=== PATIENT | female | born 1985 ===

== ENCOUNTER 2017-03-06 13:44 | Inpatient (IN) | payer SELFPAY ==
[2017-03-06] MEDS ORDERED: Lactated Ringer's 1,000 ML IV SCH (16:45)
--- NOTE | 2017-03-06 16:45 | OBHP ---
Datetime: 03/06/2017 14:45 IP Adm Impression: Term, intrauterine IP Admit Plan: Admit to unit Admit Comment, IP Provider: [id number] @ 39.2 wks GA CRYSTAL 03/11/2017 by 21.6 wks US from with liited prental records c/ of ctx pain every 5 min since this morning 08/28. pt also reports some watery leaka ge, denies any VB, +FM. Pt mira any recent intercouse. Pt has not had any care [place]in [place]. Pt denies an ycomplications or issues with this . 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 PMH: Anemia PSH: Decine FHX: denie MEDS: PNV SHX :negative etoh/tobacco/drugs A/P @ 39+ wks in early labor -pt to ambulate -return 1-2 hour for reevlatuion pt ambuated returend /-2 cvtx intac tpreort pain now 10/28 requestng pain medicaiton admist Pelvic Type - PN: Adequate Extremities - PN: Normal Abdomen - PN: Normal Back - PN: Normal Breast - PN: Not Done Lungs - PN: Normal Heart - PN: Normal Thyroid - PN: Not Done Neurologic - PN: Normal HEENT - PN: Normal General - PN: Normal Weight - Estimated: 3200 Presentation-Admit: Vertex Membranes, Provider: Intact Contraction Comments Provider: q 7 min Comments, ACOG Physical Exam: Amnsiure negative negatieve pooling Gestation - Est Wks by US: 39.2 EGA AdmitDate IP: 39.2 IP Chief Complaint: Uterine contractions NICHD Decel Fetus A IP Provider: None Dilatation, Provider: 3 Effacement, Provider: 70 Station, Provider: -2 Genitourinary Exam: Normal DTRs - PN: Normal
--- NOTE | 2017-03-06 16:56 | OBADHP ---
Datetime: 03/06/2017 14:45 Admit Comment, IP Provider: [id number] @ 39.2 wks GA CRSYTAL 03/11/2017 by 21.6 wks US from with liited prental records c/ of ctx pain every 5 min since this morning 08/28. pt also reports some watery le[place] ge, denies any VB, +FM. Pt mira any recent intercouse. Pt has not had any care [place]. Pt denies an ycomplications or issues with this . 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 PMH: Anemia PSH: Decine FHX: denie MEDS: PNV SHX :negative etoh/tobacco/drugs A/P @ 39+ wks in early labor -pt to ambulate -return 1-2 hour for reevlatuion pt ambuated returend /-2 cvtx intac tpreort pain now 10/28 requestng pain medicaiton admist Pelvic Type - PN: Adequate Extremities - PN: Normal Abdomen - PN: Normal Back - PN: Normal Breast - PN: Not Done Lungs - PN: Normal Heart - PN: Normal Thyroid - PN: Not Done Neurologic - PN: Normal HEENT - PN: Normal General - PN: Normal Weight - Estimated: 3200 Presentation-Admit: Vertex Membranes, Provider: Intact Contraction Comments Provider: q 7 min Comments, ACOG Physical Exam: Amnsiure negative negatieve pooling Gestation - Est Wks by US: 39.2 IP Chief Complaint: Uterine contractions NICHD Decel Fetus A IP Provider: None Dilatation, Provider: 3 Effacement, Provider: 70 Station, Provider: -2 Genitourinary Exam: Normal DTRs - PN: Normal EGA AdmitDate IP: 39.2 IP Adm Impression: Term, intrauterine IP Admit Plan: Admit to unit
[2017-03-06 17:24] LABS: BASO % 0.3 % (0.0-2.0); EOS % 0.1 % (0.0-4.0); HEMATOCRIT 34.7 % (34.0-47.0); LYMPH # 1.7 K/uL (1.0-4.3); LYMPH % 12.5 % (20.0-40.0); MEAN CELL VOLUME 79.5 fL (81.0-99.0); MEAN CORPUSCULAR HGB CONC 32.7 g/dL (33.0-37.0); MEAN PLATELET VOLUME 8.6 fL (7.2-11.7); MONO # 0.6 K/uL (0.0-0.8); MONO % 4.1 % (0.0-10.0); NRBC % 0.1 % (0.0-2.0); RED CELL DISTRIBUTION WIDTH 15.3 % (11.5-14.5); WHITE BLOOD COUNT 13.7 K/uL (4.8-10.8)
[2017-03-06 17:34] LABS: RBC URINE 4 /hpf (0-3); URINE BACTERIA MANY (<OCC); URINE BILIRUBIN NEGATIVE (NEGATIVE); URINE BLOOD 2+ (NEGATIVE); URINE COLOR Yellow (YELLOW); URINE GLUCOSE (UA) NORMAL (Normal); URINE KETONE TRACE mg/dL (NEGATIVE); URINE LEUKOCYTE ESTERASE 2+ Leu/uL (Negative); URINE PROTEIN NEGATIVE (NEGATIVE); URINE UROBILINOGEN NORMAL mg/dL (0.2-1.0); WBC URINE 68 /hpf (0-5)
[2017-03-06 17:36] LABS: ALB/GLOB RATIO 0.8 (1.0-2.1); ALKALINE PHOSPHATASE 196 U/L (38-126); ALT/SGPT 36 U/L (9-52); AST/SGOT 23 U/L (14-36); BILIRUBIN,TOTAL 0.5 mg/dL (0.2-1.3); BLOOD UREA NITROGEN 6 mg/dL (7-17); CALCIUM 8.7 mg/dl (8.6-10.4); CARBON DIOXIDE 25 mmol/L (22-30); CHLORIDE 104 mmol/L (98-107); GFR AFRICAN-AMERICAN > 60; GLUCOSE,RANDOM 94 mg/dL (65-105); SODIUM 136 mmol/L (132-148); TOTAL PROTEIN 8.2 g/dL (6.3-8.3)
[2017-03-06] MEDS ORDERED: Lactated Ringer's 1,000 ML IV ONE (17:54)
[2017-03-06] MEDS ORDERED: Nalbuphine 20 mg/ml Inj (1 ml) IVP PRN (18:00)
[2017-03-06] MEDS ORDERED: Nalbuphine 20 mg/ml Inj (1 ml) ONE (18:27)
--- NOTE | 2017-03-06 18:28 | OBPN ---
Datetime: 03/06/2017 18:22 IP Progress Impression: Normal progression of labor IP Informed Consent Obtain: Vaginal Delivery IP Procedures: Artificial ROM IP Progress Plan: Continue present management Membranes, Provider: Ruptured Amniotic Fluid Color, Provider: Clear Contraction Comments Provider: 3 min FHR - Baseline A Provider: 125 Gestation - Est Wks by US: 39.2 Presentation-Admit: Vertex IP Progress Note Comment: pt seen and examined c/o pain, requesting iv pain medicaion. pt does not d esire an epidural. Pt understands IV pain medicain is time lmiinted and dose limited and may wear off VSS EMF: Cat I TOCO: q 3 min VE: 6/90/-2 VTX AROM, clear A/P P1 @ 39.2 wks GA in active labor, gbs unknown -IV pain medication -Cont toco and efm -Cont current management Vital Signs Provider: Reviewed; Within Normal Limits NICHD Accel Fetus A IP Provider: [id number] FHR Category Provider Fetus A: Category I NICHD Variability Prov Fetus A: Moderate 6-25bpm Dilatation, Provider: 6 Effacement, Provider: 90 Station, Provider: -2 NICHD Decel Fetus A IP Provider: None Datetime: 03/06/2017 14:45 Weight - Estimated: 3200
[2017-03-06] MEDS ORDERED: Lidocaine 2% Inj (20ml) ONE (21:42)
--- NOTE | 2017-03-06 21:59 | OBDS ---
DELIVERY PERSONNEL Delivery Doctor: Laurel Seth MD Welding Manager: Dorina Macario RN MATERNAL INFORMATION Delivery Anesthesia: Local Medications in Delivery: PITOCIN Estimated Blood Loss (ml): 300 Placenta Cultured: No Maternal Complications: None Provider Comments: pt was fully dilated and pushnig. verbal consnet for right mediolateral episotimy given. atrumatic, spontanonesou delivery of head in BIRDIE position, loose nuchal cord x 1 reduced. Atr uamtic, spontaneous delivery of antioer followed by posteior shoulder followed by delivery of body. b oth oral and nasal passages of [place] baby were bulb suctioned. Umbicial cord was clamped adn cut. Baby was handed to mother on abdomen wit RN assistance. Cord blood collected x 2. Spontaneous delivvery of intact placenta with membranes. Fundus firm, good hemostasis. Right mediolateral epistolmy reparied with 2% lidocaine and 2-0 chromic suture. Goo dhemoasis, Live male infant weight 7lbs 9 ounce apgars 9,9 ebl 300 ml no complications LABOR SUMMARY EDC: 03/11/2017 00:00 No. Babies in Womb: 1 Attempted: No Labor Anesthesia: None LABOR INFORMATION Onset of Labor: 03/06/2017 16:30 Complete Dilatation: 03/06/2017 21:24 Oxytocin: N/A Group B Beta Strep: UNKNOWN Steroids Given: None MEMBRANES Membranes Rupture Method: Artificial Rupture of Membranes: 03/06/2017 18:20 Length of Rupture (hrs): 3.32 Amniotic Fluid Color: Clear Amniotic Fluid Amount: Moderate Amniotic Fluid Odor: Normal STAGES OF LABOR Stage 1 hrs: 4 Stage 1 min: 54 Stage 2 hrs: 0 Stage 2 min: 15 Stage 3 hrs: 0 Stage 3 min: 3 Total Time in Labor hrs: 5 Total Time in Labor min: 12 VAGINAL DELIVERY Episiotomy: Right Mediolateral Laceration Type: None Laceration Repair: Yes BABY A INFORMATION Delivery Date/Time: 03/06/2017 21:39 Method of Delivery: Vaginal Born in Route : No : N/A Forceps: N/A Vacuum Extraction: N/A Shoulder Dystocia : No SHOULDER DYSTOCIA BABY A Delivery Date/Time: 03/06/2017 21:39 PRESENTATION/POSITION BABY A Presentation: Cephalic Cephalic Presentation: Vertex Vertex Position: Right Occipital Anterior Breech Presentation: N/A PLACENTA INFORMATION BABY A Placenta Delivery Time : 03/06/2017 21:42 Placenta Method of Delivery: Spontaneous Placenta Status: Delivered SCORES BABY A Heart Rate 1 min: >100 bpm Resp Effort 1 min: Good Cry Reflex Irritability 1 min: Cough or Sneeze or Pulls Away Muscle Tone 1 min: Active Motion Color 1 min: Body [place], Extremities Blue SCORE 1 MIN: 9 Heart Rate 5 min: >100 bpm Resp Effort 5 min: Good Cry Reflex Irritability 5 min: Cough or Sneeze or Pulls Away Muscle Tone 5 min: Active Motion Color 5 min: Body [place], Extremities Blue SCORE 5 MIN: 9 INFORMATION BABY A Gestational Age at Delivery: 39.2 Gestational Status: Term Outcome : Liveborn Condition : Stable Sex: Male IDENTIFICATION/MEDS BABY A ID Band Number: [id number] ID Band Location: Left Leg; Left Arm Sensor Applied: Yes Sensor Number: [id number] Sensor Location : Cord Clamp WEIGHT/LENGTH BABY A Infant Birthweight (gms): 3430 Infant Weight (lb): 7 Weight (oz): 9 Infant Length Inches: 20.00 Infant Length cms: 50.8 CORD INFORMATION BABY A No. Cord Vessels: 3 Nuchal Cord : Around Neck x1, Loose Cord Blood Taken: Yes Infant Suction: Mouth; Nose ASSESSMENT BABY A Complications: None Physical Findings at Delivery: Within Normal Limits Respirations: Appears Normal Casing Crew/ALS Called : No Infant Care By: DR LEMONS Transferred To: Remains with Mother
[2017-03-06] MEDS ORDERED: Oxytocin 30 UNIT 1,000 ML IV SCH (22:00)
[2017-03-06] MEDS ORDERED: Benzocaine/Menthol 20%-0.5% Topical Spray (60 ml) TOP PRN (22:30)
[2017-03-06] MEDS ORDERED: Oxycodone/Acetaminophen 5/325 mg Tab PO PRN ×2 (22:30)
[2017-03-07 08:13] LABS: BASO % 0.2 % (0.0-2.0); EOS % 0.1 % (0.0-4.0); LYMPH # 2.5 K/uL (1.0-4.3); LYMPH % 11.8 % (20.0-40.0); MEAN CELL VOLUME 79.2 fL (81.0-99.0); MEAN CORPUSCULAR HEMOGLOBIN 25.9 pg (27.0-31.0); MEAN CORPUSCULAR HGB CONC 32.7 g/dL (33.0-37.0); MONO # 1.3 K/uL (0.0-0.8); MONO % 6.2 % (0.0-10.0); RED CELL DISTRIBUTION WIDTH 15.9 % (11.5-14.5)
[2017-03-07 08:15] LABS: WHITE BLOOD COUNT 21.3 K/uL (4.8-10.8)
[2017-03-07] MEDS: Multiple Vitamins Tab PO SCH (10:51)
[2017-03-07 15:49] LABS: RAPID PLASMA REAGIN NONREACTIVE (NONREACTIVE)
[2017-03-08 05:09] VITALS: PULSE 90; O2SAT 98
[2017-03-08 08:41] VITALS: BP 114/76; RESP 18; TEMP 98.9
--- NOTE | 2017-03-08 08:49 | OBDCSUM ---
Datetime: 03/08/2017 08:47 Discharged to, Provider: Home Follow up at, Provider: clinic Disch Instr Diet: Regular Discharge Instructions, Provider: Routine instructions given Discharge Diagnosis, Provider: Term Delivered Discharge Time: 03/08/2017 08:47 Follow up in weeks, Provider: 6 weeks Discharge Comment, Provider: go to r if you have fever, severe pain, heavy bleeidng or any other pro blems Discharge Diagnosis Prov Other: s/p vaginal delivery
[2017-03-08 08:54] LABS: BASO # 0.1 K/uL (0.0-0.2); BASO % 0.3 % (0.0-2.0); EOS % 0.1 % (0.0-4.0); HEMATOCRIT 31.1 % (34.0-47.0); LYMPH # 2.1 K/uL (1.0-4.3); LYMPH % 10.6 % (20.0-40.0); MEAN CELL VOLUME 79.4 fL (81.0-99.0); MEAN CORPUSCULAR HEMOGLOBIN 26.2 pg (27.0-31.0); MEAN PLATELET VOLUME 8.8 fL (7.2-11.7); MONO % 5.1 % (0.0-10.0)
[2017-03-08] MEDS: Multiple Vitamins Tab PO SCH (10:10)
--- NOTE | 2017-03-08 12:51 | OBPPN ---
Datetime: 03/08/2017 08:47 PP Pain Prov: Within normal limits PP Nausea Prov: Denies PP Flatus Prov: Yes PP BM Prov: No PP Heart Prov: Normal PP Lungs Prov: Normal PP Abdomen/Uterus Prov: Normal PP Vulva/Perineum Prov: Normal PP CVA Tenderness Prov: Normal PP Extremities Prov: Normal PP C/S Incision Prov: Not Applicable PP Progress Prov: Normal PP Impression Prov: Normal progression PP Plan Prov: Discharge PP Progress Note Prov: S-patient reports that her pain is well controlled.denies nausea, vomiting, c hest pain, shortness of breath Ambulating and voiding without difficulty O-VSS Afebrile Fundus firm and below umbilicus extremities no calf tenderness A/P Patient s/p vaginal delivery PPD2 doing well -discharge -follow up in [facility] in 6 weeks Vital Signs Provider PP: Reviewed; Within Normal Limits Datetime: 03/07/2017 18:37 PP Lochia Prov: Normal
--- NOTE | 2017-03-08 12:53 | OBDCSUM ---
Datetime: 03/08/2017 11:00 Discharged to, Provider: Home Follow up at, Provider: [facility] Disch Instr Activity: Normal activity Disch Instr Diet: Regular Discharge Diet restrict Prov: none Discharge Instructions, Provider: Routine instructions given Discharge Diagnosis, Provider: Term Delivered Discharge Time: 03/08/2017 11:30 Follow up in weeks, Provider: March 29, 2017 at 12:45 PM Disch Referrals: Drafter (Cad) Electronic Disch Activity Restrictions: No exercising; No lifting; No driving; Minimize walking; Minimize stair -climbing; No sexual activity; Nothing in vagina - [place], tampons, douche Discharge Comment, Provider: go to er if you have fever, seveer epain, heavy bleding or any other pr oblems Discharge Diagnosis Prov Other: s/p vainal delivery Datetime: 03/08/2017 10:55 Discharged to, Provider: Home Follow up at, Provider: [facility] Disch Instr Activity: Normal activity Disch Instr Diet: Regular Discharge Time: 03/08/2017 11:30 Follow up in weeks, Provider: April 05, 2017 Disch Referrals: None Disch Activity Restrictions: No exercising; No lifting; No driving; Minimize walking; Minimize stair -climbing; No sexual activity; Nothing in vagina - [place], tampons, douche Datetime: 03/08/2017 08:47 Discharged to, Provider: Home Follow up at, Provider: clinic Disch Instr Diet: Regular Discharge Instructions, Provider: Routine instructions given Discharge Diagnosis, Provider: Term Delivered Discharge Time: 03/08/2017 08:47 Follow up in weeks, Provider: 6 weeks Discharge Comment, Provider: go to r if you have fever, severe pain, heavy bleeidng or any other pro blems Discharge Diagnosis Prov Other: s/p vaginal delivery
--- NOTE | 2017-03-09 21:45 | OBPPN ---
Datetime: 03/07/2017 18:37 PP Progress Note Prov: Patient seen and examined at bedside. Per nursing no acute events overnight. Patient is doing well, pain is controlled. Lochia is mild. Ambulating and tolerating diet. Denies pas sing flatus or BM. Urinating without difficulty. Breast and bottle feeding. VS: 109/62 108 98.9 Gen: AAOx3 Abd: Soft, fundus firm 1 fingerbreath below umbilicus Ext: No clubbing, cyanosis, edema; no calf tenderness Labs: 13.7>11.3/34.7<235 21.3>9.5/29.0<205 A positive Rubella pending A/P: 31 year old at 39w2d s/p PPD#1 -Stable, afebrile -Pain control - motrin and tylenol prn -Encourage ambulation and hydration -Encourage -Rubella pending -Continue routine care -Anticipate d/c home tomorrow -Plan discussed with attending Bianca Flores DO PGY-1 Attending Note: patient was seen by me. I agree withthe documentaiton of events as above. Patient is clinically stable. Plan: 1) as above.
== END 2017-03-08 13:00 | disposition home or self-care (01) | DRG 775 ==
LOC: C.EROB 13:44 → EDBD 13:44 → C.4D 16:37 → C.4M 03-07 01:15
PROVIDERS: ADMIT Obstetrics & Gynecology; ATTEND Obstetrics & Gynecology
PROC: 0W8NXZZ Division of Female Perineum, External Approach (ICD-10-PCS; principal; 2017-03-06)
PROC: 10E0XZZ Delivery of Products of Conception, External Approach (ICD-10-PCS; 2017-03-06)
PROC: 10907ZC Drainage of Amniotic Fluid, Therapeutic from Products of Conception, Via Natural or Artificial Opening (ICD-10-PCS; 2017-03-06)
DX: O69.81X0 Labor and delivery complicated by cord around neck, without compression, not applicable or unspecified (principal); O99.02 Anemia complicating childbirth; Z37.0 Single live birth; Z3A.39 39 weeks gestation of pregnancy